=== PATIENT | male | born 1960 | race Caucasian/White ===

== ENCOUNTER 2019-11-23 23:24 | Emergency (ER) | payer MEDICARE ==
[~2019-11-23 23:24] MED LIST: BENZ0.5T43 PO; CETI-109 PO; CHOL200074 PO; DEXT1DRO OP; DICY20TA11 PO; FLUO20TA29 PO; LACT10SO PO; LEVO50TA11 PO; LITH300C3 PO; LITH600C PO; MOM30 PO; NA P133E22 RC; OCEAN NASAL; OMEP40CA13 PO; OXCA600T18 PO; POLY17PO29 PO; RISP2TAB22 PO; RISP3TAB13 PO; SENN-178 PO; TRAZ150T79 PO
[2019-11-24] MEDS ORDERED: OCTYL 2-CYANOACRYLATE 1 EACH TP ONE (01:42)
== END 2019-11-24 01:59 | disposition home or self-care (01) ==
LOC: EDH 23:24
DX: S01.112A Laceration without foreign body of left eyelid and periocular area, initial encounter (principal); X58.XXXA Exposure to other specified factors, initial encounter; Y93.89 Activity, other specified; Y92.098 Other place in other non-institutional residence as the place of occurrence of the external cause; Y99.8 Other external cause status
CPT/HCPCS: 12013

== ENCOUNTER 2020-08-24 10:17 | Emergency (ER) | payer MEDICARE ==
[~2020-08-24 10:17] MED LIST changes: -CETI-109 PO; +CETI-89 PO; -RISP2TAB22 PO; +RISP2TAB86 PO; -RISP3TAB13 PO; +RISP3TAB63 PO
== END 2020-08-24 12:23 | disposition home or self-care (01) ==
LOC: EDH 10:17
DX: T14.8XXA Other injury of unspecified body region, initial encounter (principal); F84.0 Autistic disorder; Z79.899 Other long term (current) drug therapy; W18.39XA Other fall on same level, initial encounter; Y93.89 Activity, other specified; Y92.098 Other place in other non-institutional residence as the place of occurrence of the external cause; Y99.8 Other external cause status
CPT/HCPCS: 72170

== ENCOUNTER 2020-11-18 08:41 | Inpatient (IN) | payer MEDICARE ==
[~2020-11-18] VITALS: Ht 167.6 cm; Wt 70.2 kg
[~2020-11-18 08:41] MED LIST changes: -DICY20TA11 PO; +DICY20TA3 PO; -LACT10SO PO; +LACT10SO5 PO; -OMEP40CA13 PO; +OMEP40CA21 PO; -POLY17PO29 PO; +POLY17PO52 PO
[2020-11-18 09:21] LABS: BASOPHILS % (AUTO) 0.5 % (0.0-5.0); EOSINOPHILS % (AUTO) 1.2 % (0.0-8.0); HEMATOCRIT 43.1 % (42-54); LYMPHOCYTES % (AUTO) 10.3 % (21.0-51.0); MEAN CORPUSCULAR HEMOGLOBIN 28.6 pg (27.0-33.0); MEAN CORPUSCULAR HGB CONC 30.6 g/dL (32.0-36.0); MEAN CORPUSCULAR VOLUME 93.3 fL (79-99); MONOCYTES % (AUTO) 7.3 % (3.0-13.0); NEUTROPHILS % (AUTO) 80.2 % (40.0-77.0); PLATELET COUNT (AUTO) 401 K/uL (130-400); RED BLOOD CELL COUNT(AUTO) 4.62 MIL/uL (4.50-6.20); WHITE BLOOD COUNT (AUTO) 9.3 K/uL (4.8-10.8)
[2020-11-18 09:33] LABS: INR 1.05 (0.85-1.15); PROTHROMBIN TIME 11.4 SEC (9.6-11.6)
[2020-11-18 09:34] LABS: PARTIAL THROMBOPLASTIN TIME 22.8 SEC (26.3-35.5)
[2020-11-18 09:45] LABS: ALBUMIN 3.1 g/dL (3.5-5.0); BILIRUBIN,TOTAL 0.4 mg/dL (0.2-1.0); CREATININE 1.1 mg/dL (0.5-1.5); TOTAL PROTEIN, SERUM 6.9 g/dL (6.0-8.3)
[2020-11-18] MEDS ORDERED: 0.9%NACL 1000ML 1,000 ML IV ONE (10:12)
[2020-11-18] MEDS ORDERED: LEVOFLOXACIN 500 MG/D5W 100 ML 100 ML ONE (12:30)
[2020-11-18 18:18] VITALS: BP 120/63
[2020-11-18] MEDS ORDERED: LORA-192 PO (19:49)
[2020-11-18] MEDS ORDERED: BISA5TAB12 PO (19:57)
[2020-11-18] MEDS ORDERED: MELA1TAB52 PO (19:57)
[2020-11-18] MEDS ORDERED: ALBU0.63 IH (19:57)
[2020-11-18] MEDS ORDERED: RISP3DIS PO (19:57)
[2020-11-18] MEDS ORDERED: RISP1TAB98 PO (19:57)
[2020-11-18] MEDS ORDERED: FLUO40CA7 PO (19:57)
[2020-11-18] MEDS ORDERED: GUAIFENESIN-CODEINE 5 ML SYRUP PO PRN (20:15)
[2020-11-18] MEDS: 0.9%NACL 1000ML 1,000 ML IV SCH (21:14)
[2020-11-18 21:28] VITALS: BP 115/63
[2020-11-18 23:42] VITALS: BP 122/63
[2020-11-19] MEDS: IPRATROPIUM/ALBUTEROL SULFATE 3 ML SOLUTION IH SCH
[2020-11-19 04:32] VITALS: BP 148/85
[2020-11-19] MEDS: LEVOFLOXACIN 500 MG/D5W 100 ML 100 ML IV SCH (09:15)
[2020-11-19] MEDS: 0.9%NACL 1000ML 1,000 ML IV SCH ×2 (09:16→19:00)
[2020-11-19] MEDS ORDERED: DEXTROSE 50%-WATER 50 ML DISP.SYRIN IV PRN (09:45)
[2020-11-19] MEDS ORDERED: LIDOCAINE HCL-MPF 1% 2ML VIAL IV PRN ×2 (09:45)
[2020-11-19] MEDS ORDERED: POTASSIUM CHLORIDE 10% ELIXIR 20 MEQ/15 ML UDCUP PO PRN (09:45)
[2020-11-19] MEDS ORDERED: KCL 20 MEQ ERTAB PO PRN (09:45)
[2020-11-19] MEDS ORDERED: BISACODYL 10 MG SUPP.RECT RC PRN (09:45)
[2020-11-19] MEDS ORDERED: POTASSIUM CHLORIDE 20MEQ/100ML 100 ML IV PRN ×2 (09:45)
[2020-11-19] MEDS ORDERED: MAGNESIUM 2GM PREMIX 50ML 50 ML IV PRN (09:45)
[2020-11-19] MEDS ORDERED: GLUCAGON 1MG KIT 1 MG ML IM PRN (09:45)
[2020-11-19 10:16] LABS: HEMATOCRIT 39.5 % (42-54); MEAN CORPUSCULAR HEMOGLOBIN 28.3 pg (27.0-33.0); MEAN CORPUSCULAR HGB CONC 30.6 g/dL (32.0-36.0); MEAN CORPUSCULAR VOLUME 92.5 fL (79-99); RED BLOOD CELL COUNT(AUTO) 4.27 MIL/uL (4.50-6.20); RED CELL DISTRIBUTION WIDTH 14.5 % (11.0-15.5); WHITE BLOOD COUNT (AUTO) 7.5 K/uL (4.8-10.8)
[2020-11-19 10:38] LABS: CREATININE 1.1 mg/dL (0.5-1.5)
[2020-11-19 12:00] VITALS: BP 140/73
[2020-11-19 19:30] VITALS: BP 142/67
[2020-11-20] VITALS (7 sets, daily range): BP systolic 116–164; BP diastolic 58–84
[2020-11-20 05:45] LABS: HEMATOCRIT 35.7 % (42-54); MEAN CORPUSCULAR HEMOGLOBIN 28.8 pg (27.0-33.0); MEAN CORPUSCULAR HGB CONC 31.7 g/dL (32.0-36.0); MEAN CORPUSCULAR VOLUME 90.8 fL (79-99); RED BLOOD CELL COUNT(AUTO) 3.93 MIL/uL (4.50-6.20); RED CELL DISTRIBUTION WIDTH 14.3 % (11.0-15.5); WHITE BLOOD COUNT (AUTO) 6.9 K/uL (4.8-10.8)
[2020-11-20 06:01] LABS: ALBUMIN 2.4 g/dL (3.5-5.0); BILIRUBIN,TOTAL 0.4 mg/dL (0.2-1.0); CREATININE 0.9 mg/dL (0.5-1.5); MAGNESIUM 2.5 mg/dL (1.80-2.40); POTASSIUM 3.6 mmol/L (3.5-5.1); TOTAL PROTEIN, SERUM 5.7 g/dL (6.0-8.3)
[2020-11-20] MEDS: 0.9%NACL 1000ML 1,000 ML IV SCH ×2 (06:01→10:30)
[2020-11-20] MEDS: PANTOPRAZOLE 40 MG/VIAL IVP SCH (09:46)
[2020-11-20] MEDS: LEVOFLOXACIN 500 MG/D5W 100 ML 100 ML IV SCH (09:46)
[2020-11-20] MEDS: ENOXAPARIN SODIUM 40 MG/0.4 ML SYRINGE SQ SCH (09:48)
[2020-11-20] MEDS ORDERED: HALOPERIDOL INJ 5 MG/ML VIAL IV SCH (11:50)
[2020-11-20] MEDS ORDERED: HALOPERIDOL INJ 5 MG/ML VIAL ONE (11:52)
[2020-11-20] MEDS: HALOPERIDOL INJ 5 MG/ML VIAL IM SCH ×2 (13:11→20:35)
[2020-11-20] MEDS ORDERED: OLANZAPINE ODT 5 MG TAB SL SCH (20:30)
[2020-11-20] MEDS ORDERED: **HM**(Melatonin 5 MG PO PRN (20:30)
[2020-11-20] MEDS ORDERED: HALOPERIDOL INJ 5 MG/ML VIAL IM PRN (23:15)
[2020-11-21] VITALS (8 sets, daily range): BP systolic 98–143; BP diastolic 50–75
[2020-11-21] MEDS: 0.9%NACL 1000ML 1,000 ML IV SCH ×3 (00:27→20:28)
[2020-11-21] MEDS: IPRATROPIUM/ALBUTEROL SULFATE 3 ML SOLUTION IH SCH (05:04)
[2020-11-21] MEDS: PANTOPRAZOLE 40 MG/VIAL IVP SCH (08:30)
[2020-11-21] MEDS: LORAZEPAM 1 MG TABLET PO SCH (08:30)
[2020-11-21] MEDS: LEVOFLOXACIN 500 MG/D5W 100 ML 100 ML IV SCH (08:30)
[2020-11-21] MEDS: ENOXAPARIN SODIUM 40 MG/0.4 ML SYRINGE SQ SCH (08:32)
[2020-11-21] MEDS ORDERED: RISPERIDONE 0.5 MG TABLET PO SCH (09:00)
[2020-11-21] MEDS ORDERED: OLANZAPINE 5 MG TAB PO SCH (09:00)
[2020-11-21] MEDS: RISPERIDONE 0.5 MG TABLET PO SCH ×2 (12:00→20:27)
[2020-11-21] MEDS ORDERED: TRAZODONE HCL 50 MG TAB PO PRN (12:15)
[2020-11-21 13:01] LABS: CREATININE 0.7 mg/dL (0.5-1.5); POTASSIUM 3.4 mmol/L (3.5-5.1)
[2020-11-21] MEDS ORDERED: HALOPERIDOL INJ 5 MG/ML VIAL ONE (17:25)
[2020-11-21] MEDS ORDERED: HALOPERIDOL INJ 5 MG/ML VIAL IM SCH (17:30)
[2020-11-21] MEDS ORDERED: HALOPERIDOL INJ 5 MG/ML VIAL IM PRN (17:30)
[2020-11-21] MEDS: OXCARBAZEPINE 300 MG TAB PO SCH (20:27)
[2020-11-21] MEDS: BENZTROPINE 0.5MG TAB PO SCH (20:28)
[2020-11-22 04:00] VITALS: BP 124/63
[2020-11-22] MEDS: 0.9%NACL 1000ML 1,000 ML IV SCH ×2 (07:00→17:00)
[2020-11-22] MEDS: IPRATROPIUM/ALBUTEROL SULFATE 3 ML SOLUTION IH SCH ×2 (07:11→18:59)
[2020-11-22] MEDS: RISPERIDONE 0.5 MG TABLET PO SCH ×3 (12:00→20:35)
[2020-11-22] MEDS: LEVOFLOXACIN 500 MG/D5W 100 ML 100 ML IV SCH (12:42)
[2020-11-22] MEDS: PANTOPRAZOLE 40 MG/VIAL IVP SCH (12:42)
[2020-11-22] MEDS: FLUOXETINE HCL 20 MG CAPSULE PO SCH (12:43)
[2020-11-22] MEDS: LORAZEPAM 1 MG TABLET PO SCH (12:43)
[2020-11-22] MEDS: OXCARBAZEPINE 300 MG TAB PO SCH ×2 (12:45→20:35)
[2020-11-22] MEDS: BENZTROPINE 0.5MG TAB PO SCH ×2 (12:49→20:37)
[2020-11-22] MEDS: ENOXAPARIN SODIUM 40 MG/0.4 ML SYRINGE SQ SCH (13:33)
[2020-11-22 20:06] VITALS: BP 149/78
[2020-11-23 00:01] VITALS: BP 148/76
[2020-11-23] MEDS: IPRATROPIUM/ALBUTEROL SULFATE 3 ML SOLUTION IH SCH ×3 (00:29→18:23)
[2020-11-23 02:55] VITALS: BP 146/72
[2020-11-23] MEDS: 0.9%NACL 1000ML 1,000 ML IV SCH ×2 (02:56→19:56)
[2020-11-23] MEDS: PANTOPRAZOLE 40 MG/VIAL IVP SCH (09:35)
[2020-11-23] MEDS: LORAZEPAM 1 MG TABLET PO SCH (09:36)
[2020-11-23] MEDS: BENZTROPINE 0.5MG TAB PO SCH ×2 (09:36→19:46)
[2020-11-23] MEDS: FLUOXETINE HCL 20 MG CAPSULE PO SCH (09:36)
[2020-11-23] MEDS: OXCARBAZEPINE 300 MG TAB PO SCH ×2 (09:36→19:46)
[2020-11-23] MEDS: ENOXAPARIN SODIUM 40 MG/0.4 ML SYRINGE SQ SCH (09:37)
[2020-11-23] MEDS: LEVOFLOXACIN 500 MG/D5W 100 ML 100 ML IV SCH (09:37)
[2020-11-23] MEDS: RISPERIDONE 0.5 MG TABLET PO SCH (09:37)
[2020-11-23 12:00] VITALS: BP 135/88
[2020-11-23 16:00] VITALS: BP 170/95
[2020-11-23] MEDS: FAMOTIDINE 20MG VIAL IV SCH (19:45)
[2020-11-23] MEDS: TRAZODONE HCL 50 MG TAB PO SCH (19:45)
[2020-11-23] MEDS ORDERED: RISPERIDONE 0.5 MG TABLET PO ONE (19:47)
[2020-11-23] MEDS ORDERED: RISPERIDONE 1 MG TABLET ONE (19:52)
[2020-11-23] MEDS: RISPERIDONE 1 MG TABLET PO SCH (19:55)
[2020-11-23 21:18] VITALS: BP 146/74
[2020-11-24] VITALS (8 sets, daily range): BP systolic 120–157; BP diastolic 60–98
[2020-11-24] MEDS: HALOPERIDOL INJ 5 MG/ML VIAL IM PRN ×2 (00:08→15:59)
[2020-11-24] MEDS: IPRATROPIUM/ALBUTEROL SULFATE 3 ML SOLUTION IH SCH ×5 (00:15→23:18)
[2020-11-24] MEDS: FAMOTIDINE 20MG VIAL IV SCH ×2 (08:18→22:04)
[2020-11-24] MEDS: FLUOXETINE HCL 20 MG CAPSULE PO SCH (08:19)
[2020-11-24] MEDS: LORAZEPAM 1 MG TABLET PO SCH (08:19)
[2020-11-24] MEDS: RISPERIDONE 1 MG TABLET PO SCH ×3 (08:20→22:04)
[2020-11-24] MEDS: OXCARBAZEPINE 300 MG TAB PO SCH ×2 (08:20→22:04)
[2020-11-24] MEDS: BENZTROPINE 0.5MG TAB PO SCH ×2 (08:20→22:04)
[2020-11-24] MEDS: ENOXAPARIN SODIUM 40 MG/0.4 ML SYRINGE SQ SCH (08:21)
[2020-11-24] MEDS: LEVOFLOXACIN 500 MG/D5W 100 ML 100 ML IV SCH (08:21)
[2020-11-24] MEDS ORDERED: LORAZEPAM 2 MG/ML 1 ML VIAL ONE (17:22)
[2020-11-24] MEDS: 0.9%NACL 1000ML 1,000 ML IV SCH (22:03)
[2020-11-24] MEDS: TRAZODONE HCL 50 MG TAB PO SCH (22:04)
[2020-11-25 04:15] VITALS: BP 118/63
[2020-11-25] MEDS: 0.9%NACL 1000ML 1,000 ML IV SCH ×2 (05:00→15:00)
[2020-11-25] MEDS: IPRATROPIUM/ALBUTEROL SULFATE 3 ML SOLUTION IH SCH ×2 (06:37→11:42)
[2020-11-25 08:00] VITALS: BP 122/72
[2020-11-25] MEDS: RISPERIDONE 1 MG TABLET PO SCH ×3 (09:53→20:27)
[2020-11-25] MEDS: FLUOXETINE HCL 20 MG CAPSULE PO SCH (09:53)
[2020-11-25] MEDS: OXCARBAZEPINE 300 MG TAB PO SCH ×2 (09:53→20:27)
[2020-11-25] MEDS: FAMOTIDINE 20MG VIAL IV SCH ×2 (09:53→20:26)
[2020-11-25] MEDS: LORAZEPAM 1 MG TABLET PO SCH (09:53)
[2020-11-25] MEDS: BENZTROPINE 0.5MG TAB PO SCH ×2 (09:53→20:27)
[2020-11-25] MEDS: LEVOFLOXACIN 500 MG/D5W 100 ML 100 ML IV SCH (09:54)
[2020-11-25] MEDS: ENOXAPARIN SODIUM 40 MG/0.4 ML SYRINGE SQ SCH (09:54)
[2020-11-25] MEDS: HALOPERIDOL INJ 5 MG/ML VIAL IM PRN ×3 (10:18→20:54)
[2020-11-25 12:00] VITALS: BP 131/83
[2020-11-25 16:00] VITALS: BP 143/83
[2020-11-25 19:05] VITALS: BP 166/79
[2020-11-25] MEDS: TRAZODONE HCL 50 MG TAB PO SCH (20:27)
[2020-11-26 00:06] VITALS: BP 141/83
[2020-11-26] MEDS: IPRATROPIUM/ALBUTEROL SULFATE 3 ML SOLUTION IH SCH ×4 (00:32→18:00)
[2020-11-26 03:58] VITALS: BP 118/63
[2020-11-26 08:00] VITALS: BP 126/75
[2020-11-26] MEDS: RISPERIDONE 1 MG TABLET PO SCH ×3 (09:49→20:30)
[2020-11-26] MEDS: LEVOFLOXACIN 500 MG TABLET PO SCH (09:49)
[2020-11-26] MEDS: FLUOXETINE HCL 20 MG CAPSULE PO SCH (09:49)
[2020-11-26] MEDS: LORAZEPAM 1 MG TABLET PO SCH (09:49)
[2020-11-26] MEDS: BENZTROPINE 0.5MG TAB PO SCH ×2 (09:49→20:30)
[2020-11-26] MEDS: OXCARBAZEPINE 300 MG TAB PO SCH ×2 (09:49→20:30)
[2020-11-26] MEDS: ENOXAPARIN SODIUM 40 MG/0.4 ML SYRINGE SQ SCH (09:50)
[2020-11-26 11:45] VITALS: BP 146/71
[2020-11-26] MEDS ORDERED: DiphenhydrAMINE HCL 50 MG/ML VIAL ONE (15:36)
[2020-11-26] MEDS ORDERED: DiphenhydrAMINE HCL 50 MG/ML VIAL IM SCH (15:45)
[2020-11-26 16:00] VITALS: BP 151/78
[2020-11-26] MEDS ORDERED: LORAZEPAM 2 MG/ML 1 ML VIAL IM ONE (17:10)
[2020-11-26 20:00] VITALS: BP 118/71
[2020-11-26] MEDS: FAMOTIDINE 20MG TAB PO SCH (20:30)
[2020-11-26] MEDS ORDERED: TRAZODONE HCL 50 MG TAB PO SCH (21:00)
[2020-11-27 04:00] VITALS: BP 119/62
[2020-11-27 08:00] VITALS: BP 118/77
[2020-11-27] MEDS: FLUOXETINE HCL 20 MG CAPSULE PO SCH (08:59)
[2020-11-27] MEDS: LEVOFLOXACIN 500 MG TABLET PO SCH (08:59)
[2020-11-27] MEDS: RISPERIDONE 1 MG TABLET PO SCH ×2 (08:59→12:53)
[2020-11-27] MEDS: FAMOTIDINE 20MG TAB PO SCH (09:00)
[2020-11-27] MEDS: LORAZEPAM 1 MG TABLET PO SCH (09:00)
[2020-11-27] MEDS: OXCARBAZEPINE 300 MG TAB PO SCH (09:00)
[2020-11-27] MEDS: ENOXAPARIN SODIUM 40 MG/0.4 ML SYRINGE SQ SCH (09:01)
[2020-11-27 11:51] VITALS: BP 131/63
[2020-11-27] MEDS: BENZTROPINE 0.5MG TAB PO SCH (12:53)
[2020-11-27] MEDS: IPRATROPIUM/ALBUTEROL SULFATE 3 ML SOLUTION IH SCH ×2 (13:36)
== END 2020-11-27 13:54 | disposition home or self-care (01) | DRG 177 ==
LOC: EDH 08:41 → OBSVTOIN 12:15 → EDHIP 12:15 → INTOOBSV 12:15 → 4BH 17:17
PROVIDERS: ADMIT Internal Medicine; ATTEND Internal Medicine
DX: J15.6 Pneumonia due to other Gram-negative bacteria (principal); J96.01 Acute respiratory failure with hypoxia; G93.41 Metabolic encephalopathy; M62.82 Rhabdomyolysis; F73 Profound intellectual disabilities; F84.0 Autistic disorder; R13.12 Dysphagia, oropharyngeal phase; Z20.822 Contact with and (suspected) exposure to COVID-19; I34.0 Nonrheumatic mitral (valve) insufficiency; K59.09 Other constipation; R53.81 Other malaise; F06.30 Mood disorder due to known physiological condition, unspecified; G40.909 Epilepsy, unspecified, not intractable, without status epilepticus; F63.81 Intermittent explosive disorder; I95.9 Hypotension, unspecified; F20.9 Schizophrenia, unspecified; Z68.25 Body mass index [BMI] 25.0-25.9, adult; Z74.01 Bed confinement status; Z98.41 Cataract extraction status, right eye; Z79.899 Other long term (current) drug therapy
CPT/HCPCS: 36415; 70450; 71045; 71250; 80048; 80053; 80178; 82140; 82550; 83605; 83735; 84132; 84484; 85025; 85027; 85610; 85730; 87426; 92610; 93005; 94640; 94664; C9113; G0378; J1200; J1630; J1650; J1956; J2060; J3490; J7030; U0003

== ENCOUNTER 2021-01-15 21:52 | Emergency (ER) | payer MEDICARE ==
[~2021-01-15 21:52] MED LIST changes: +ALBU0.63 IH; +BISA5TAB12 PO; +DICY20TA11 PO; -DICY20TA3 PO; +FLUO40CA7 PO; +LORA-192 PO; +MELA1TAB52 PO; +OMEP40CA13 PO; -OMEP40CA21 PO; +RISP1TAB98 PO; +RISP3DIS PO
[2021-01-15 22:44] LABS: BASOPHILS % (AUTO) 0.5 % (0.0-5.0); HEMATOCRIT 38.5 % (42-54); LYMPHOCYTES % (AUTO) 25.3 % (21.0-51.0); MEAN CORPUSCULAR HEMOGLOBIN 29.4 pg (27.0-33.0); MEAN CORPUSCULAR HGB CONC 31.9 g/dL (32.0-36.0); MEAN CORPUSCULAR VOLUME 91.9 fL (79-99); MONOCYTES % (AUTO) 11.1 % (3.0-13.0); NEUTROPHILS % (AUTO) 59.7 % (40.0-77.0); PLATELET COUNT (AUTO) 230 K/uL (130-400); RED BLOOD CELL COUNT(AUTO) 4.19 MIL/uL (4.50-6.20); RED CELL DISTRIBUTION WIDTH 13.9 % (11.0-15.5); WHITE BLOOD COUNT (AUTO) 5.7 K/uL (4.8-10.8)
[2021-01-15 22:56] LABS: CREATININE 0.9 mg/dL (0.5-1.5); POTASSIUM 4.4 mmol/L (3.5-5.1)
[2021-01-15 23:05] LABS: ALBUMIN 3.4 g/dL (3.5-5.0); BILIRUBIN,TOTAL 0.3 mg/dL (0.2-1.0); TOTAL PROTEIN, SERUM 6.5 g/dL (6.0-8.3)
[2021-01-15 23:20] LABS: APPEARANCE,URINE Clear (CLEAR); BILIRUBIN,URINE Negative (NEGATIVE); COLOR,URINE Yellow (YELLOW); GLUCOSE, URINE (UA) Negative (NEGATIVE); KETONES,URINE Negative (NEGATIVE); LEUKOCYTE ESTERASE ,URINE Small (NEGATIVE); NITRATE,URINE Negative (NEGATIVE); OCCULT BLOOD,URINE Negative (NEGATIVE); PROTEIN,URINE Negative (NEGATIVE)
[2021-01-15 23:53] LABS: BACTERIA,URINE Rare /HPF (None Seen); RBC,URINE None Seen /HPF (0-1); WBC,URINE 0-1 /HPF (0-1)
[2021-01-16] MEDS ORDERED: CEFTRIAXONE SODIUM 1 GM ONE (02:14)
== END 2021-01-16 03:32 | disposition home or self-care (01) ==
LOC: EDH 21:52
DX: N39.0 Urinary tract infection, site not specified (principal); R25.2 Cramp and spasm; T50.995A Adverse effect of other drugs, medicaments and biological substances, initial encounter; Z20.822 Contact with and (suspected) exposure to COVID-19; F84.0 Autistic disorder; Z98.890 Other specified postprocedural states; Z79.899 Other long term (current) drug therapy; Y92.89 Other specified places as the place of occurrence of the external cause
CPT/HCPCS: 36415; 71045; 80053; 81001; 84484; 85025; 87040; 87426; 87804 ×2; 87880; 96374; 99285; J0696; U0003

== ENCOUNTER 2021-12-01 09:34 | Observation (INO) | payer MEDICARE ==
[~2021-12-01] VITALS: Ht 175.3 cm; Wt 80.9 kg
[~2021-12-01 09:34] MED LIST changes: -DICY20TA11 PO; +DICY20TA3 PO; -OMEP40CA13 PO; +OMEP40CA21 PO
[2021-12-01 13:04] LABS: BASOPHILS % (AUTO) 0.7 % (0.0-5.0); EOSINOPHILS % (AUTO) 2.1 % (0.0-8.0); HEMATOCRIT 41.9 % (42-54); LYMPHOCYTES % (AUTO) 19.3 % (21.0-51.0); MEAN CORPUSCULAR HEMOGLOBIN 29.6 pg (27.0-33.0); MEAN CORPUSCULAR HGB CONC 31.7 g/dL (32.0-36.0); MEAN CORPUSCULAR VOLUME 93.1 fL (79-99); MONOCYTES % (AUTO) 7.8 % (3.0-13.0); NEUTROPHILS % (AUTO) 69.6 % (40.0-77.0); PLATELET COUNT (AUTO) 197 K/uL (130-400); RED CELL DISTRIBUTION WIDTH 12.5 % (11.0-15.5); WHITE BLOOD COUNT (AUTO) 4.4 K/uL (4.8-10.8)
[2021-12-01 13:19] LABS: CREATININE 0.8 mg/dL (0.5-1.5); POTASSIUM 4.1 mmol/L (3.5-5.1)
[2021-12-01 13:24] LABS: ALBUMIN 3.8 g/dL (3.5-5.0); BILIRUBIN,TOTAL 0.2 mg/dL (0.2-1.0)
[2021-12-01] MEDS ORDERED: LACTULOSE 20 GM/30 ML UDCUP ONE (14:51)
[2021-12-01] MEDS ORDERED: BISACODYL 5 MG TABLET.DR PO ONE (14:52)
[2021-12-01] MEDS ORDERED: LACTULOSE 20 GM/30 ML UDCUP PO ONE (15:00)
[2021-12-01] MEDS ORDERED: BISACODYL 5 MG TABLET.DR PO SCH (15:00)
[2021-12-01] MEDS ORDERED: MAGNESIUM CITRATE 296 ML SOLUTION ONE (16:06)
[2021-12-01] MEDS ORDERED: MAGNESIUM HYDROXIDE 30 ML/UDCUP PO PRN (16:30)
[2021-12-01] MEDS ORDERED: OXYMETAZOLINE HCL SPRAY 15 ML BOTTLE NS SCH (16:30)
[2021-12-01] MEDS ORDERED: MAGNESIUM CITRATE 296 ML SOLUTION PO ONE (16:30)
[2021-12-01] MEDS ORDERED: ONDANSETRON ODT 4MG TAB SL PRN (16:30)
[2021-12-01] MEDS ORDERED: DICYCLOMINE HCL 20 MG TAB PO PRN (16:30)
[2021-12-01] MEDS ORDERED: ACETAMINOPHEN 325 MG TAB PO PRN (16:30)
[2021-12-01] MEDS ORDERED: BISACODYL 10 MG SUPP.RECT RC ONE (16:30)
[2021-12-01] MEDS: LORAZEPAM 1 MG TABLET PO PRN (17:54)
[2021-12-01] MEDS: LITHIUM CARBONATE 150 MG CAPSULE PO SCH (20:53)
[2021-12-01] MEDS: LACTULOSE 20 GM/30 ML UDCUP PO SCH (20:53)
[2021-12-01] MEDS: BISACODYL 5 MG TABLET.DR PO SCH (20:53)
[2021-12-01] MEDS: BENZTROPINE 0.5MG TAB PO SCH (20:53)
[2021-12-01] MEDS: MIRTAZAPINE 15 MG TABLET PO SCH (20:53)
[2021-12-01] MEDS: OXCARBAZEPINE 300 MG TAB PO SCH (20:53)
[2021-12-01] MEDS: RISPERIDONE 1 MG TABLET PO SCH (20:53)
[2021-12-02] MEDS: LACTULOSE 20 GM/30 ML UDCUP PO SCH ×6 (01:34→22:15)
[2021-12-02] MEDS: LEVOTHYROXINE 50 MCG TABLET PO SCH (06:36)
[2021-12-02] MEDS: RISPERIDONE 1 MG TABLET PO SCH ×3 (08:09→21:56)
[2021-12-02] MEDS: OXCARBAZEPINE 300 MG TAB PO SCH ×2 (09:03→21:56)
[2021-12-02] MEDS: LITHIUM CARBONATE 150 MG CAPSULE PO SCH ×2 (09:03→21:58)
[2021-12-02] MEDS: POLYETHYLENE GLYCOL 3350 17 GM POWD.PACK PO SCH (09:03)
[2021-12-02] MEDS: FLUOXETINE HCL 20 MG CAPSULE PO SCH (09:03)
[2021-12-02] MEDS: PANTOPRAZOLE 40 MG TAB DR PO SCH (09:03)
[2021-12-02] MEDS: BENZTROPINE 0.5MG TAB PO SCH ×2 (09:03→21:56)
[2021-12-02] MEDS: BISACODYL 5 MG TABLET.DR PO SCH ×2 (09:03→22:15)
[2021-12-02 10:03] VITALS: BP 138/72
[2021-12-02] MEDS: CETIRIZINE HCL 5 MG TABLET PO SCH (12:03)
[2021-12-02] MEDS: LORAZEPAM 1 MG TABLET PO PRN (14:11)
[2021-12-02 16:53] VITALS: BP 151/94
[2021-12-02 19:54] VITALS: BP_SYST 144
[2021-12-02] MEDS: MIRTAZAPINE 15 MG TABLET PO SCH (21:56)
[2021-12-02 23:15] VITALS: BP 130/72
[2021-12-03] MEDS: LACTULOSE 20 GM/30 ML UDCUP PO SCH ×4 (04:00→12:00)
[2021-12-03 04:13] LABS: CREATININE 0.7 mg/dL (0.5-1.5); MAGNESIUM 2.1 mg/dL (1.80-2.40); POTASSIUM 4.6 mmol/L (3.5-5.1)
[2021-12-03 04:37] VITALS: BP 124/67
[2021-12-03 05:36] LABS: HEMATOCRIT 40.1 % (42-54); MEAN CORPUSCULAR HEMOGLOBIN 29.2 pg (27.0-33.0); MEAN CORPUSCULAR HGB CONC 32.7 g/dL (32.0-36.0); MEAN CORPUSCULAR VOLUME 89.5 fL (79-99); RED BLOOD CELL COUNT(AUTO) 4.48 MIL/uL (4.50-6.20); RED CELL DISTRIBUTION WIDTH 12.2 % (11.0-15.5); WHITE BLOOD COUNT (AUTO) 6.1 K/uL (4.8-10.8)
[2021-12-03 07:20] VITALS: BP 114/71
[2021-12-03] MEDS: PANTOPRAZOLE 40 MG TAB DR PO SCH (07:57)
[2021-12-03] MEDS: CETIRIZINE HCL 5 MG TABLET PO SCH (07:57)
[2021-12-03] MEDS: BISACODYL 5 MG TABLET.DR PO SCH (07:57)
[2021-12-03] MEDS: OXCARBAZEPINE 300 MG TAB PO SCH (07:57)
[2021-12-03] MEDS: LEVOTHYROXINE 50 MCG TABLET PO SCH (07:57)
[2021-12-03] MEDS: FLUOXETINE HCL 20 MG CAPSULE PO SCH (07:57)
[2021-12-03] MEDS: POLYETHYLENE GLYCOL 3350 17 GM POWD.PACK PO SCH (07:57)
[2021-12-03] MEDS: RISPERIDONE 1 MG TABLET PO SCH ×2 (08:00→13:12)
[2021-12-03 11:15] VITALS: BP 154/56
[2021-12-03] MEDS: LITHIUM CARBONATE 150 MG CAPSULE PO SCH (13:11)
[2021-12-03] MEDS: BENZTROPINE 0.5MG TAB PO SCH (13:12)
== END 2021-12-03 18:02 | disposition home or self-care (01) ==
LOC: EDH 09:34 → EDHIP 16:05 → 3BH 12-02 09:48 → 4AH 12-02 19:09
PROVIDERS: ADMIT Internal Medicine Infectious Disease; ATTEND Internal Medicine Infectious Disease
DX: K59.01 Slow transit constipation (principal); R10.9 Unspecified abdominal pain; F79 Unspecified intellectual disabilities; K59.00 Constipation, unspecified; E03.9 Hypothyroidism, unspecified; F31.9 Bipolar disorder, unspecified; F84.0 Autistic disorder; Z98.41 Cataract extraction status, right eye; Z79.899 Other long term (current) drug therapy; Z98.890 Other specified postprocedural states
CPT/HCPCS: 36415 ×2; 74018; 74176; 80048; 80053; 83690; 83735; 85025; 85027; 99285; G0378 ×50

== ENCOUNTER 2022-05-19 11:08 | Emergency (ER) | payer MEDICARE ==
[~2022-05-19] VITALS: Ht 162.6 cm; Wt 80.7 kg
[2022-05-19 11:14] VITALS: BP 120/69
[2022-05-19 11:49] LABS: BASOPHILS % (AUTO) 0.6 % (0.0-5.0); HEMATOCRIT 38.3 % (42-54); MEAN CORPUSCULAR HEMOGLOBIN 28.9 pg (27.0-33.0); MEAN CORPUSCULAR HGB CONC 32.4 g/dL (32.0-36.0); MEAN CORPUSCULAR VOLUME 89.3 fL (79-99); MONOCYTES % (AUTO) 10.5 % (3.0-13.0); NEUTROPHILS % (AUTO) 61.5 % (40.0-77.0); PLATELET COUNT (AUTO) 198 K/uL (130-400); RED BLOOD CELL COUNT(AUTO) 4.29 MIL/uL (4.50-6.20); RED CELL DISTRIBUTION WIDTH 13.5 % (11.0-15.5); WHITE BLOOD COUNT (AUTO) 4.7 K/uL (4.8-10.8)
[2022-05-19 11:57] LABS: CREATININE 0.8 mg/dL (0.5-1.5)
[2022-05-19 12:01] LABS: ALBUMIN 3.7 g/dL (3.5-5.0); TOTAL PROTEIN, SERUM 6.6 g/dL (6.0-8.3)
== END 2022-05-19 12:55 | disposition home or self-care (01) ==
LOC: EDH 11:08
DX: S01.01XA Laceration without foreign body of scalp, initial encounter (principal); F84.0 Autistic disorder; Z79.899 Other long term (current) drug therapy; X58.XXXA Exposure to other specified factors, initial encounter; Y93.89 Activity, other specified; Y92.89 Other specified places as the place of occurrence of the external cause; Y99.8 Other external cause status
CPT/HCPCS: 36415; 70450; 72125; 80053; 80178; 85025

== ENCOUNTER 2022-06-24 15:15 | Emergency (ER) | payer MEDICARE ==
[~2022-06-24] VITALS: Ht 170.2 cm; Wt 95.3 kg
[2022-06-24] MEDS ORDERED: ONDANSETRON 4MG INJ IVP ONE (15:30)
[2022-06-24 15:49] LABS: BASOPHILS % (AUTO) 0.6 % (0.0-5.0); EOSINOPHILS % (AUTO) 0.8 % (0.0-8.0); HEMATOCRIT 39.4 % (42-54); LYMPHOCYTES % (AUTO) 13.9 % (21.0-51.0); MEAN CORPUSCULAR HEMOGLOBIN 28.9 pg (27.0-33.0); MEAN CORPUSCULAR HGB CONC 32.2 g/dL (32.0-36.0); MEAN CORPUSCULAR VOLUME 89.5 fL (79-99); MONOCYTES % (AUTO) 17.5 % (3.0-13.0); NEUTROPHILS % (AUTO) 66.8 % (40.0-77.0); PLATELET COUNT (AUTO) 174 K/uL (130-400); RED CELL DISTRIBUTION WIDTH 13.3 % (11.0-15.5)
[2022-06-24 15:57] LABS: POTASSIUM 4.5 mmol/L (3.5-5.1)
[2022-06-24 16:01] LABS: ALBUMIN 3.8 g/dL (3.5-5.0); TOTAL PROTEIN, SERUM 7.2 g/dL (6.0-8.3)
[2022-06-24 18:00] LABS: APPEARANCE,URINE CLOUDY (CLEAR); BILIRUBIN,URINE NEGATIVE (NEGATIVE); COLOR,URINE LIGHT-YELLOW (YELLOW); GLUCOSE, URINE (UA) NEGATIVE (NEGATIVE); KETONES,URINE NEGATIVE (NEGATIVE); LEUKOCYTE ESTERASE ,URINE NEGATIVE Leu/uL (NEGATIVE); NITRATE,URINE NEGATIVE (NEGATIVE); OCCULT BLOOD,URINE NEGATIVE (NEGATIVE); PROTEIN,URINE NEGATIVE (NEGATIVE); UROBILINOGEN,URINE 0.2 mg/dL (0.2-1.0)
[2022-06-24 18:24] LABS: BACTERIA,URINE FEW /HPF (None Seen); MUCUS,URINE RARE LPF (None Seen); RBC,URINE 0-1 /HPF (0-1); SQUAMOUS EPITHELIAL CELL,UR RARE /HPF (0-2)
[2022-06-24 19:14] VITALS: BP 138/74
== END 2022-06-24 19:32 | disposition home or self-care (01) ==
LOC: EDH 15:15
DX: K59.01 Slow transit constipation (principal); F84.0 Autistic disorder; Z79.899 Other long term (current) drug therapy
CPT/HCPCS: 36415; 71045; 74176; 80053; 81001; 83690; 83880; 85025

== ENCOUNTER 2023-02-16 19:44 | Emergency (ER) | payer MEDICARE ==
[~2023-02-16 19:44] MED LIST changes: -BENZ0.5T43 PO; +BENZ0.5T6 PO; +BISA-151 PO; -BISA5TAB12 PO; -FLUO20TA29 PO; +LINA145C PO; +MIRT-72 PO; -RISP2TAB86 PO; -RISP3DIS PO; -SENN-178 PO; -TRAZ150T79 PO
[2023-02-16] MEDS ORDERED: EPINEPHRINE 1MG/10ML(1:10,000) 0.1 MG/ML SYG IVP ONE (19:45)
== END 2023-02-16 23:34 ==
LOC: EDH 19:44
DX: I46.9 Cardiac arrest, cause unspecified (principal); F84.0 Autistic disorder; Z79.899 Other long term (current) drug therapy
CPT/HCPCS: 99285; 92950; J0171